=== PATIENT | male | born 1965 | race Hispanic/Latino ===

== ENCOUNTER 2016-12-01 19:26 | Emergency (ER) | payer MEDICARE ==
[2016-12-01 20:38] VITALS: BP 168/105
[2016-12-01 21:20] LABS: Basophils % (Auto) 0.8 % (0.0-1.8); Eosinophils % (Auto) 2.2 % (0.0-4.3); Hematocrit 46.3 % (35.5-45.6); Hemoglobin 15.6 gm/dl (11.8-15.2); Mean Corpuscular HGB Conc 34 % (32-34); Mean Corpuscular Hemoglobin 30 pg (28-32); Mean Corpuscular Volume 89 fl (84-94); Platelet Count 197 K/mm3 (140-440); Red Cell Distribution Width 13.5 % (13.2-15.2); White Blood Count 8.4 K/mm3 (4.5-11.0)
[2016-12-01 21:25] LABS: Urine Drugs of Abuse Note Disclamer
[2016-12-01 21:30] LABS: Anion Gap 19 mmol/L; Blood Urea Nitrogen 12 mg/dL (9-20); Calcium 9.2 mg/dL (8.4-10.2); Carbon Dioxide 26 mmol/L (22-30); Chloride 100.6 mmol/L (98-107); Glucose 133 mg/dL (75-100); Potassium 3.7 mmol/L (3.6-5.0); Sodium 142 mmol/L (137-145)
[2016-12-01 21:44] LABS: Bilirubin,Urine NEG (Negative); Blood,Urine NEG (Negative); Ketones,Urine TR mg/dL (Negative); Leukocyte Esterase,Urine NEG (Negative); Mucus,Urine FEW /HPF; Nitrite,Urine NEG (Negative); Protein,Urine <15 mg/dL mg/dL (Negative); Urobilinogen,Urine < 2.0 mg/dL (<2.0); WBC,Urine < 1.0 /HPF (0.0-6.0)
--- NOTE | 2016-12-01 22:24 | Emergency Department Report ---
ED Psych HPI - General Chief Complaint: Psych Stated Complaint: MENTAL HEALTH EVAL Time Seen by Provider: 12/01/16 22:17 Source: patient Mode of arrival: Ambulatory Limitations: No Limitations - History of Present Illness Initial Comments: 51-year-old male presents to the emergency department for medical clearance. Patient was seen at [facility] and has been accepted for admission by Dr. Sharma for opiate addiction. At this time, the patient has no complaints. He denies suicidal or homicidal thoughts. He also denies auditory or visual hallucinations. There are no other complaints -: Gradual Associated Psychiatric Symptoms: none History of same: No Improves With: none Worsens With: none Context: recent drug abuse Associated Symptoms: denies other symptoms Treatments Prior to Arrival: none - Related Data Allergies Allergy/AdvReac Type Severity Reaction Status Date / Time No Known Allergies Allergy Unverified 12/01/16 20:56 ED Review of Systems ROS: Stated complaint: MENTAL HEALTH EVAL Other details as noted in HPI Comment: All other systems reviewed and negative Psychiatric: as per HPI, other (drug abuse) ED Past Medical Hx - Past Medical History Previous Medical History?: Yes Hx Hypertension: Yes Hx Diabetes: Yes Additional medical history: Hyperlipidemia - Surgical History Past Surgical History?: Yes Additional Surgical History: HERNIA SX 2008 - Family History Family history: no significant - Social History Smoking Status: Current Every Day Smoker Substance Use Type: Prescribed ED Physical Exam - General Limitations: No Limitations General appearance: alert, in no apparent distress - Head Head exam: Present: atraumatic, normocephalic - Eye Eye exam: Present: normal appearance, PERRL, EOMI - ENT ENT exam: Present: normal exam, normal orophraynx, mucous membranes moist - Neck Neck exam: Present: normal inspection, full ROM. Absent: tenderness - Respiratory Respiratory exam: Present: normal lung sounds bilaterally. Absent: respiratory distress - Cardiovascular Cardiovascular Exam: Present: regular rate, normal rhythm, normal heart sounds - GI/Abdominal GI/Abdominal exam: Present: soft, normal bowel sounds. Absent: distended, tenderness - Extremities Exam Extremities exam: Present: normal inspection, full ROM. Absent: tenderness - Back Exam Back exam: Present: normal inspection, full ROM. Absent: tenderness - Neurological Exam Neurological exam: Present: alert, oriented X3. Absent: motor sensory deficit - Skin Skin exam: Present: warm, dry, intact ED Course Vital Signs 12/01/16 12/01/16 20:37 20:47 Temperature 98.8 F 98.8 F Pulse Rate 72 72 Respiratory 18 18 Rate Blood Pressure 168/105 Blood Pressure 168/105 [Right] O2 Sat by Pulse 97 97 Oximetry ED Medical Decision Making - Lab Data Result diagrams: 12/01/16 20:58 12/01/16 20:58 - Medical Decision Making Laboratory results reviewed and discussed with the patient. Patient has been medically cleared. Patient will be discharged from the emergency department to go back to take her hospital for inpatient treatment. - Differential Diagnosis drug abuse Critical care attestation.: If time is entered above; I have spent that time in minutes in the direct care of this critically ill patient, excluding procedure time. ED Disposition Clinical Impression: Drug abuse, Medical clearance for psychiatric admission Disposition: DC/TX-65 PSY HOSP/PSY UNIT Is pt being admited?: No Condition: Stable Instructions: Medical Clearance for Substance Abuse Treatment (ED) Referrals: Hospital, [place] [Other] - [facility] (Go there now to be admitted.) Time of Disposition: 22:27
== END 2016-12-01 22:32 ==
LOC: ED 19:26 → EEVIPCON 19:26 → ED 22:32
DX: Z00.8 Encounter for other general examination (principal); F19.10 Other psychoactive substance abuse, uncomplicated; I10 Essential (primary) hypertension; E11.9 Type 2 diabetes mellitus without complications; E78.00 Pure hypercholesterolemia, unspecified
CPT/HCPCS: 36415; 80048; 80307; 81001; 85025; 99283; G0480; 80320

== ENCOUNTER 2017-09-23 09:14 | Outpatient (CLI) | payer MEDICARE ==
[2017-09-23 10:23] LABS: Blood Urea Nitrogen 12 mg/dL (9-20)
--- NOTE | 2017-09-23 16:39 | Cat Scan Report ---
FINAL REPORT EXAM: CT ABDOMEN PELVIS W CON HISTORY: ABDOMINAL PAIN TECHNIQUE: CT examination of the ABDOMEN after IV contrast CT examination of the PELVIS after IV contrast PRIORS: None. FINDINGS: Nonspecific diffusely decreased density of liver parenchyma may reflect fatty infiltration. No visualized focal liver lesion. There is slight focal fatty sparing adjacent the gallbladder fossa. Normal-appearing gallbladder, adrenals, pancreas, and spleen. Intact normal caliber abdominal aorta with slight calcified atherosclerotic plaque. Normal caliber IVC. Normal-appearing kidneys and ureters. Surgical coils in the anterior abdominal wall may reflect prior umbilical hernia repair. Small fat containing left inguinal hernia. No retroperitoneal adenopathy. No mesenteric mass. Normal-appearing stomach and duodenum. No small bowel distention in the abdomen and pelvis. No pelvic free fluid. Normal-appearing urinary bladder, prostate, seminal vesicles, and rectum. No definite sigmoid colon abnormality. No gross ascites, free air, or colonic distention. Normal-appearing cecum, terminal ileum, and appendix. IMPRESSION: Hepatic steatosis Small fat containing left inguinal hernia
== END 2017-09-23 09:15 | disposition home or self-care (01) ==
LOC: CT 09:14
PROVIDERS: ATTEND Internal Medicine Gastroenterology
DX: K40.90 Unilateral inguinal hernia, without obstruction or gangrene, not specified as recurrent (principal); K76.0 Fatty (change of) liver, not elsewhere classified; I70.0 Atherosclerosis of aorta
CPT/HCPCS: 36415; 74177; 82565; 84520; Q9967

== ENCOUNTER 2017-10-02 10:12 | Inpatient (IN) | payer MEDICARE ==
[2017-10-02] MEDS ORDERED: ZOFRAN ODT PO PRN (11:29)
[2017-10-02] MEDS ORDERED: ATIVAN IV ONE (11:29)
[2017-10-02] MEDS ORDERED: SENOKOT PO PRN (11:29)
[2017-10-02] MEDS ORDERED: DULCOLAX PR PRN (11:29)
[2017-10-02] MEDS ORDERED: HumaLOG SUB-Q ONE (11:51)
[2017-10-02] MEDS: HumaLOG SUB-Q SCH ×3 (11:56→23:05)
[2017-10-02] MEDS ORDERED: FOLVITE IV SCH (12:00)
[2017-10-02] MEDS ORDERED: INFUVITE IV SCH (12:00)
[2017-10-02] MEDS ORDERED: NACL 0.9% IV SCH (12:00)
[2017-10-02] MEDS ORDERED: ATIVAN PO SCH (12:00)
[2017-10-02] MEDS ORDERED: VITAMIN B1 IV SCH (12:00)
[2017-10-02] MEDS ORDERED: HABITROL TD PRN (15:57)
--- NOTE | 2017-10-02 16:12 | History and Physical Report ---
History of Present Illness Date of examination: 10/02/17 Date of admission: 10/02/17 10:45 Chief complaint: Opiate withdraw History of present illness: Mr. Ugarte is 51 yo man with a history of IDDM, hypertension, dyslipidemia, depression, tobacco dependency, alcohol abuse and opiate addiction who presents as a Direct admission from [facility] for opiate and alcohol withdrawal. He is mainly here for opiate withdrawal, percocet and doesn't consider alcohol to be an issue; although he drinks 1/2 pint of Old Pak Whiskey almost daily, his last drink was Thursday at 4pm. He has been to opiate medical stabilization unit in the past. He was on suboxone, and was taking off it, he was buying Suboxone illegally. Currently, he denies any complaints. PMH: as hpi PSH: Ventral hernia repair SH: 1/2 ppd tob, 1/2 pint Whiskey every other day, denies cocaine FH: Father has htn, no dm, no early heart attacks ROS: Constitutional: denies: fever ENT: denies: throat or neck pain Respiratory: denies: cough, shortness of breath Cardiovascular: denies: chest pain Endocrine: denies unexplained weight loss or gain Gastrointestinal: denies: abdominal pain, nausea Genitourinary: denies: dysuria Rectal: denies no incontinence, no bleeding, no itching, no discharge Musculoskeletal: denies swelling, myaglia, muscle weakness Skin: denies: rash Neurological: denies: headache Hematological/Lymphatic: denies: easy bleeding or easy bruising Allergic/Immunologic: no urticaria, no allergic rhinitis, no anaphylaxis Psych: denies sadness or hopelessness, SI/HI Medications and Allergies Allergies Allergy/AdvReac Type Severity Reaction Status Date / Time No Known Allergies Allergy Unverified 12/01/16 20:56 Home Medications Medication Instructions Recorded Confirmed Last Taken Type Albuterol Sulfate [Ventolin HFA] 2 puff IH Q4H PRN 10/02/17 10/02/17 Unknown History Detemir (Nf) [Levemir (Nf)] 20 units SUB-Q HS 10/02/17 10/02/17 Unknown History Dicyclomine [Bentyl] 20 mg PO TID 10/02/17 10/02/17 Unknown History Gabapentin [Neurontin] 400 mg PO HS 10/02/17 10/02/17 Unknown History Insulin Aspart [NovoLOG Flexpen] See Protocol SQ ACHS 10/02/17 10/02/17 Unknown History Lisinopril/Hydrochlorothiazide 1 each PO HS 10/02/17 10/02/17 Unknown History [Zestoretic 10-12.5 mg Tablet] Sertraline HCl [Zoloft] 50 mg PO DAILY 10/02/17 10/02/17 Unknown History Active Meds: Active Medications Bisacodyl (Dulcolax) 10 mg AR QDAY PRN PRN Reason: Bowel Movement Folic Acid (Folvite) 1 mg PO QDAY [facility] Thiamine HCl 100 mg/Multivitamins/Minerals 10 ml/Folic Acid 1 mg/ Sodium Chloride 1,011.2 mls @ 150 mls/hr IV QDAY [facility] Stop: 10/02/17 18:45 Last Admin: 10/02/17 12:08 Dose: 150 mls/hr Sodium Chloride (Nacl 0.9% 1000 Ml) 1,000 mls @ 100 mls/hr IV DIRECT CHRISTA Insulin Human Lispro (Humalog) 0 unit SUB-Q [facility]; Protocol Last Admin: 10/02/17 11:56 Dose: 4 unit Lorazepam (Ativan) 1 mg PO Q6HR [facility] Stop: 10/04/17 00:01 Lorazepam (Ativan) 1 mg PO Q8HR [facility] Stop: 10/04/17 22:01 Lorazepam (Ativan) 1 mg PO Q4H [facility] Stop: 10/03/17 08:01 Multivitamins (Theragran Tab) 1 each PO QDAY [facility] Nicotine (Habitrol) 21 mg TD QDAY PRN PRN Reason: Smoking Cessation Ondansetron HCl (Zofran) 4 mg IV Q6H PRN PRN Reason: Moderat/Severe Nausea/Vomiting Ondansetron HCl (Zofran Odt) 4 mg PO Q6H PRN PRN Reason: Mild / Nausea And Vomiting Senna (Senokot) 17.2 mg PO QHS PRN PRN Reason: Constipation Thiamine HCl (Vitamin B-1) 100 mg PO QDAY [facility] Trazodone HCl (Desyrel) 50 mg PO QHS [facility] Exam - Physical Exam Narrative exam: GEN: WDWN, NAD, Awake, Alert, Orientated x 3 HEENT: NCAT, EOMI, PERRL, OP Clear NECK: supple, no adenopathy, no thyromegaly, no JVD CVS/HEART: RRR, normal S1S2, pulses present bilaterally CHEST/LUNGS: CTA B, Symmetrical chest expansion, good air entry bilaterally GI/Abdomen: soft, NTND, good bowel sounds, no guarding or rebound /Bladder: no suprapubic tenderness, no CVA or paraspinal tenderness EXT/Skin: no c/c/e, no obvious rash MSK: FROM x 4 Neuro: CN 2-12 grossly intact, no new focal deficits Psych: calm - Constitutional Vitals: Temp Pulse Resp BP Pulse Ox 97.9 F 66 18 172/75 97 10/02/17 11:03 10/02/17 11:03 10/02/17 11:15 10/02/17 11:03 10/02/17 11:15 Results - Labs Labs: Abnormal lab results 10/02/17 Range/Units 11:30 POC Glucose 271 H (70-105) Assessment and Plan Mr. Ugarte is 51 yo man with a history of IDDM, hypertension, dyslipidemia, depression, tobacco dependency, alcohol abuse and opiate addiction who presents as a Direct admission from [facility] for opiate and alcohol withdrawal. He is mainly here for opiate withdrawal, percocet and doesn't consider alcohol to be an issue; although he drinks 1/2 pint of Old Pak Whiskey almost daily, his last drink was Thursday at 4pm. He has been to opiate medical stabilization unit in the past. He was on suboxone, and was taking off it, he was buying Suboxone illegally. Currently, he denies any complaints. PCP Dr. Jr Holm -Opiate Withdrawal, CINA 17: medical stabilization protocol used, counseling done -Etoh Withdrawal, CIWA 25: medical stabilization protocol used, counseling done -Tobacco dependency: certified addiction counselor done, offered nicotine -IDDM uncontrolled with hyperglycemia: add ssi insulin, he takes 20 units of levemir daily and novolog ssi at home -UDS positive for amphetamines: Leaf Stripper -Hypertension: continue antihypertensives
[2017-10-02] MEDS ORDERED: PROAIR IH PRN (16:21)
[2017-10-02] MEDS ORDERED: APRESOLINE IV PRN (16:30)
[2017-10-02] MEDS: ATIVAN PO SCH ×2 (16:39→20:43)
[2017-10-02] MEDS ORDERED: PROVENTIL IH PRN (16:43)
[2017-10-02] MEDS: NORVASC PO SCH (16:44)
[2017-10-02] MEDS: ZESTRIL PO SCH (16:45)
[2017-10-02] MEDS: NACL 0.9% 1000 ML 1,000 ML IV SCH (18:47)
[2017-10-02] MEDS: NEURONTIN PO SCH (21:04)
[2017-10-02] MEDS: DESYREL PO SCH (21:05)
[2017-10-02] MEDS: ZOFRAN IV PRN (21:05)
[2017-10-02] MEDS ORDERED: ZESTRIL PO SCH (22:00)
[2017-10-02] MEDS ORDERED: DETEMIR SUB-Q SCH (22:00)
[2017-10-02] MEDS ORDERED: NON-FORMULARY (Lisinopril/Hydrochlorothiazide [Zestoretic 10-12.5 Mg Tablet] 1 EACH) PO SCH (22:00)
[2017-10-02] MEDS ORDERED: HCTZ PO SCH (22:00)
[2017-10-02] MEDS: LANTUS SUB-Q SCH (23:03)
[2017-10-03] MEDS: ATIVAN PO SCH ×8 (00:12→23:57)
[2017-10-03 00:13] LABS: Bilirubin,Urine NEG (Negative); Blood,Urine NEG (Negative); Color,Urine Yellow (Yellow); Protein,Urine <15 mg/dL mg/dL (Negative); Urobilinogen,Urine < 2.0 mg/dL (<2.0); WBC,Urine < 1.0 /HPF (0.0-6.0)
[2017-10-03 00:21] LABS: Amphetamine Screen,Urine PRESUMPTIVE NEGATIVE; Benzodiazepines Screen,Urine PRESUMPTIVE NEGATIVE; Cannabinoid Screen,Urine PRESUMPTIVE NEGATIVE; Cocaine Screen,Urine PRESUMPTIVE NEGATIVE; Methadone Screen,Urine PRESUMPTIVE NEGATIVE; Opiate Screen,Urine PRESUMPTIVE NEGATIVE
[2017-10-03] MEDS: HumaLOG SUB-Q SCH ×4 (08:25→21:19)
[2017-10-03] MEDS: NACL 0.9% 1000 ML 1,000 ML IV SCH ×2 (08:28→23:55)
[2017-10-03] MEDS: THERAGRAN Tab PO SCH (10:54)
[2017-10-03] MEDS: FOLVITE PO SCH (10:54)
[2017-10-03] MEDS: ZESTRIL PO SCH (10:54)
[2017-10-03] MEDS: VITAMIN B-1 PO SCH (10:54)
[2017-10-03] MEDS: ZOLOFT PO SCH (10:54)
[2017-10-03] MEDS: NORVASC PO SCH (10:55)
--- NOTE | 2017-10-03 11:09 | Progress Note ---
Assessment and Plan Assessment and plan: Mr. Ugarte is 51 yo man with a history of IDDM, hypertension, dyslipidemia, depression, tobacco dependency, alcohol abuse and opiate addiction who presents as a Direct admission from [facility] for opiate and alcohol withdrawal. He is mainly here for opiate withdrawal, percocet and doesn't consider alcohol to be an issue; although he drinks 1/2 pint of Old Pak Whiskey almost daily, his last drink was Thursday at 4pm. He has been to opiate medical stabilization unit in the past. He was on suboxone, and was taking off it, he was buying Suboxone illegally. Currently, he denies any complaints. PCP Dr. Jr Holm -Opiate Withdrawal, CINA 17 on admission: medical stabilization protocol used, counseling done -Etoh Withdrawal, CIWA 25 on admission: medical stabilization protocol used, counseling done -Tobacco dependency: staff counselor done, offered nicotine -IDDM uncontrolled with hyperglycemia: add ssi insulin, he takes 20 units of levemir daily and novolog ssi at home -Hypertension: continue antihypertensives History Interval history: Patient was seen and examined. Follow-up on current diagnosis. Overnight uneventful. Patient denies any chest pain, shortness breath, nausea/vomiting or severe headaches. Imaging, nursing note, chart, labs and old chart reviewed. Discussed with patient. Hospitalist Physical - Physical exam Narrative exam: GEN: WDWN, NAD, Awake, Alert, Orientated x 3 HEENT: NCAT, EOMI, PERRL, OP Clear NECK: supple, no adenopathy, no thyromegaly, no JVD CVS/HEART: RRR, normal S1S2, pulses present bilaterally CHEST/LUNGS: CTA B, Symmetrical chest expansion, good air entry bilaterally GI/Abdomen: soft, NTND, good bowel sounds, no guarding or rebound /Bladder: no suprapubic tenderness, no CVA or paraspinal tenderness EXT/Skin: no c/c/e, no obvious rash MSK: FROM x 4 Neuro: CN 2-12 grossly intact, no new focal deficits Psych: calm - Constitutional Vitals: Temp Pulse Resp BP Pulse Ox 98.6 F 61 20 131/87 95 10/03/17 08:27 10/03/17 10:55 10/03/17 08:27 10/03/17 10:55 10/03/17 08:27 Results - Labs Labs: Laboratory Last Values POC Glucose 251 (70-105) H 10/02/17 22:11 Urine Color Yellow (Yellow) 10/02/17 Unknown Urine Turbidity Clear (Clear) 10/02/17 Unknown Urine pH 6.0 (5.0-7.0) 10/02/17 Unknown Ur Specific [place] 1.012 (1.003-1.030) 10/02/17 Unknown Urine Protein <15 mg/dl mg/dL (Negative) 10/02/17 Unknown Urine Glucose (UA) >=500 mg/dL (Negative) 10/02/17 Unknown Urine Ketones Neg mg/dL (Negative) 10/02/17 Unknown Urine Blood Neg (Negative) 10/02/17 Unknown Urine Nitrite Neg (Negative) 10/02/17 Unknown Urine Bilirubin Neg (Negative) 10/02/17 Unknown Urine Urobilinogen < 2.0 mg/dL (<2.0) 10/02/17 Unknown Ur Leukocyte Esterase Neg (Negative) 10/02/17 Unknown Urine WBC (Auto) < 1.0 /HPF (0.0-6.0) 10/02/17 Unknown Urine RBC (Auto) 2.0 /HPF (0.0-6.0) 10/02/17 Unknown Urine Opiates Screen Presumptive negative 10/02/17 Unknown Urine Methadone Screen Presumptive negative 10/02/17 Unknown Ur Barbiturates Screen Presumptive negative 10/02/17 Unknown Ur Phencyclidine Scrn Presumptive negative 10/02/17 Unknown Ur Amphetamines Screen Presumptive negative 10/02/17 Unknown U Benzodiazepines Scrn Presumptive negative 10/02/17 Unknown Urine Cocaine Screen Presumptive negative 10/02/17 Unknown U Marijuana (THC) Screen Presumptive negative 10/02/17 Unknown Drugs of Abuse Note Disclamer 10/02/17 Unknown
[2017-10-03] MEDS ORDERED: ATIVAN PO SCH (14:00)
[2017-10-03] MEDS: ZOFRAN IV PRN (21:04)
[2017-10-03] MEDS: LANTUS SUB-Q SCH (21:11)
[2017-10-03] MEDS: DESYREL PO SCH (21:11)
[2017-10-03] MEDS: NEURONTIN PO SCH (21:11)
[2017-10-04] MEDS: ZOFRAN IV PRN ×2 (05:19→19:40)
[2017-10-04] MEDS: ATIVAN PO SCH ×4 (05:20→22:10)
[2017-10-04] MEDS: HumaLOG SUB-Q SCH ×4 (08:52→22:22)
[2017-10-04] MEDS: ZESTRIL PO SCH (09:56)
[2017-10-04] MEDS: THERAGRAN Tab PO SCH (09:58)
[2017-10-04] MEDS: FOLVITE PO SCH (09:58)
[2017-10-04] MEDS: NORVASC PO SCH (09:58)
[2017-10-04] MEDS: VITAMIN B-1 PO SCH (09:58)
[2017-10-04] MEDS: ZOLOFT PO SCH (09:59)
[2017-10-04] MEDS: NACL 0.9% 1000 ML 1,000 ML IV SCH ×2 (11:24→22:22)
--- NOTE | 2017-10-04 14:32 | Progress Note ---
Assessment and Plan Assessment and plan: Mr. Ugarte is 51 yo man with a history of IDDM, hypertension, dyslipidemia, depression, tobacco dependency, alcohol abuse and opiate addiction who presents as a Direct admission from [facility] for opiate and alcohol withdrawal. He is mainly here for opiate withdrawal, percocet and doesn't consider alcohol to be an issue; although he drinks 1/2 pint of Old Pak Whiskey almost daily, his last drink was Thursday at 4pm. He has been to opiate medical stabilization unit in the past. He was on suboxone, and was taking off it, he was buying Suboxone illegally. Currently, he denies any complaints. PCP Dr. Jr Holm -Opiate Withdrawal, CINA 17 on admission: medical stabilization protocol used, counseling done -Etoh Withdrawal, CIEMELINA 25 on admission: medical stabilization protocol used, counseling done -Tobacco dependency: school adjustment counselor done, offered nicotine -IDDM uncontrolled with hyperglycemia: add ssi insulin, he takes 20 units of levemir daily and novolog ssi at home -Hypertension: continue antihypertensives History Interval history: Patient was seen and examined. Follow-up on current diagnosis. Overnight uneventful. Patient denies any chest pain, shortness breath, nausea/vomiting or severe headaches. Imaging, nursing note, chart, labs and old chart reviewed. Discussed with patient. Hospitalist Physical - Physical exam Narrative exam: GEN: WDWN, NAD, Awake, Alert, Orientated x 3 HEENT: NCAT, EOMI, PERRL, OP Clear NECK: supple, no adenopathy, no thyromegaly, no JVD CVS/HEART: RRR, normal S1S2, pulses present bilaterally CHEST/LUNGS: CTA B, Symmetrical chest expansion, good air entry bilaterally GI/Abdomen: soft, NTND, good bowel sounds, no guarding or rebound /Bladder: no suprapubic tenderness, no CVA or paraspinal tenderness EXT/Skin: no c/c/e, no obvious rash MSK: FROM x 4 Neuro: CN 2-12 grossly intact, no new focal deficits Psych: calm - Constitutional Vitals: Temp Pulse Resp BP Pulse Ox 98.2 F 60 20 154/88 95 10/04/17 12:00 10/04/17 12:00 10/04/17 12:00 10/04/17 12:00 10/04/17 12:00 Results - Labs Labs: Laboratory Last Values POC Glucose 189 (70-105) H 10/04/17 11:31 Urine Color Yellow (Yellow) 10/02/17 Unknown Urine Turbidity Clear (Clear) 10/02/17 Unknown Urine pH 6.0 (5.0-7.0) 10/02/17 Unknown Ur Specific [place] 1.012 (1.003-1.030) 10/02/17 Unknown Urine Protein <15 mg/dl mg/dL (Negative) 10/02/17 Unknown Urine Glucose (UA) >=500 mg/dL (Negative) 10/02/17 Unknown Urine Ketones Neg mg/dL (Negative) 10/02/17 Unknown Urine Blood Neg (Negative) 10/02/17 Unknown Urine Nitrite Neg (Negative) 10/02/17 Unknown Urine Bilirubin Neg (Negative) 10/02/17 Unknown Urine Urobilinogen < 2.0 mg/dL (<2.0) 10/02/17 Unknown Ur Leukocyte Esterase Neg (Negative) 10/02/17 Unknown Urine WBC (Auto) < 1.0 /HPF (0.0-6.0) 10/02/17 Unknown Urine RBC (Auto) 2.0 /HPF (0.0-6.0) 10/02/17 Unknown Urine Opiates Screen Presumptive negative 10/02/17 Unknown Urine Methadone Screen Presumptive negative 10/02/17 Unknown Ur Barbiturates Screen Presumptive negative 10/02/17 Unknown Ur Phencyclidine Scrn Presumptive negative 10/02/17 Unknown Ur Amphetamines Screen Presumptive negative 10/02/17 Unknown U Benzodiazepines Scrn Presumptive negative 10/02/17 Unknown Urine Cocaine Screen Presumptive negative 10/02/17 Unknown U Marijuana (THC) Screen Presumptive negative 10/02/17 Unknown Drugs of Abuse Note Disclamer 10/02/17 Unknown
[2017-10-04] MEDS: DESYREL PO SCH (21:56)
[2017-10-04] MEDS: NEURONTIN PO SCH (21:56)
[2017-10-04] MEDS: LANTUS SUB-Q SCH (22:08)
[2017-10-05] MEDS: ATIVAN PO SCH (05:17)
[2017-10-05] MEDS: ZOFRAN IV PRN (05:36)
[2017-10-05] MEDS: HumaLOG SUB-Q SCH ×4 (08:20→23:37)
[2017-10-05] MEDS: TYLENOL PO PRN ×3 (08:25→19:55)
[2017-10-05] MEDS: ZESTRIL PO SCH (09:18)
[2017-10-05] MEDS: NORVASC PO SCH (09:18)
[2017-10-05] MEDS: THERAGRAN Tab PO SCH (09:19)
[2017-10-05] MEDS: VITAMIN B-1 PO SCH (09:19)
[2017-10-05] MEDS: ZOLOFT PO SCH (09:19)
[2017-10-05] MEDS: FOLVITE PO SCH (09:22)
--- NOTE | 2017-10-05 12:02 | Progress Note ---
Assessment and Plan Assessment and plan: Mr. Ugarte is 51 yo man with a history of IDDM, hypertension, dyslipidemia, depression, tobacco dependency, alcohol abuse and opiate addiction who presents as a Direct admission from [facility] for opiate and alcohol withdrawal. He is mainly here for opiate withdrawal, percocet and doesn't consider alcohol to be an issue; although he drinks 1/2 pint of Old Pak Whiskey almost daily, his last drink was Thursday at 4pm. He has been to opiate medical stabilization unit in the past. He was on suboxone, and was taking off it, he was buying Suboxone illegally. Currently, he denies any complaints. PCP Dr. Jr Holm -Opiate Withdrawal, CINA 17 on admission: medical stabilization protocol used, counseling done -Etoh Withdrawal, CIWA 25 on admission: medical stabilization protocol used, counseling done -Tobacco dependency: [employer] travel counselor done, offered nicotine -IDDM uncontrolled with hyperglycemia: add ssi insulin, he takes 20 units of levemir daily and novolog ssi at home -Hypertension: continue antihypertensives d/c once cleared by [facility] medical team. History Interval history: Patient was seen and examined. Follow-up on current diagnosis. Overnight uneventful. Patient denies any chest pain, shortness breath, nausea/vomiting or severe headaches. Imaging, nursing note, chart, labs and old chart reviewed. Discussed with patient. Hospitalist Physical - Physical exam Narrative exam: GEN: WDWN, NAD, Awake, Alert, Orientated x 3 HEENT: NCAT, EOMI, PERRL, OP Clear NECK: supple, no adenopathy, no thyromegaly, no JVD CVS/HEART: RRR, normal S1S2, pulses present bilaterally CHEST/LUNGS: CTA B, Symmetrical chest expansion, good air entry bilaterally GI/Abdomen: soft, NTND, good bowel sounds, no guarding or rebound /Bladder: no suprapubic tenderness, no CVA or paraspinal tenderness EXT/Skin: no c/c/e, no obvious rash MSK: FROM x 4 Neuro: CN 2-12 grossly intact, no new focal deficits Psych: calm - Constitutional Vitals: Temp Pulse Resp BP Pulse Ox 97.7 F 71 20 168/104 96 10/05/17 08:10 10/05/17 09:18 10/05/17 08:25 10/05/17 09:18 10/05/17 08:52 Results - Labs Labs: Laboratory Last Values POC Glucose 137 (70-105) H 10/05/17 08:15 Urine Color Yellow (Yellow) 10/02/17 Unknown Urine Turbidity Clear (Clear) 10/02/17 Unknown Urine pH 6.0 (5.0-7.0) 10/02/17 Unknown Ur Specific [place] 1.012 (1.003-1.030) 10/02/17 Unknown Urine Protein <15 mg/dl mg/dL (Negative) 10/02/17 Unknown Urine Glucose (UA) >=500 mg/dL (Negative) 10/02/17 Unknown Urine Ketones Neg mg/dL (Negative) 10/02/17 Unknown Urine Blood Neg (Negative) 10/02/17 Unknown Urine Nitrite Neg (Negative) 10/02/17 Unknown Urine Bilirubin Neg (Negative) 10/02/17 Unknown Urine Urobilinogen < 2.0 mg/dL (<2.0) 10/02/17 Unknown Ur Leukocyte Esterase Neg (Negative) 10/02/17 Unknown Urine WBC (Auto) < 1.0 /HPF (0.0-6.0) 10/02/17 Unknown Urine RBC (Auto) 2.0 /HPF (0.0-6.0) 10/02/17 Unknown Urine Opiates Screen Presumptive negative 10/02/17 Unknown Urine Methadone Screen Presumptive negative 10/02/17 Unknown Ur Barbiturates Screen Presumptive negative 10/02/17 Unknown Ur Phencyclidine Scrn Presumptive negative 10/02/17 Unknown Ur Amphetamines Screen Presumptive negative 10/02/17 Unknown U Benzodiazepines Scrn Presumptive negative 10/02/17 Unknown Urine Cocaine Screen Presumptive negative 10/02/17 Unknown U Marijuana (THC) Screen Presumptive negative 10/02/17 Unknown Drugs of Abuse Note Disclamer 10/02/17 Unknown
--- NOTE | 2017-10-05 12:05 | Discharge Summary ---
Providers - Providers Date of Admission: 10/02/17 10:45 Date of discharge: 10/05/17 Attending physician: KOTA DRUMMOND Primary care physician: EMILY HOLM Hospitalization Condition: Stable Hospital course: Mr. Ugarte is 51 yo man with a history of IDDM, hypertension, dyslipidemia, depression, tobacco dependency, alcohol abuse and opiate addiction who presents as a Direct admission from [facility] for opiate and alcohol withdrawal. He is mainly here for opiate withdrawal, percocet and doesn't consider alcohol to be an issue; although he drinks 1/2 pint of Old Pak Whiskey almost daily, his last drink was Thursday at 4pm. He has been to opiate medical stabilization unit in the past. He was on suboxone, and was taking off it, he was buying Suboxone illegally. Currently, he denies any complaints. PCP Dr. Jr Holm -Opiate Withdrawal, CINA 17 on admission: medical stabilization protocol used, counseling done -Etoh Withdrawal, CIWA 25 on admission: medical stabilization protocol used, counseling done -Tobacco dependency: res counselor done, offered nicotine -IDDM uncontrolled with hyperglycemia: add ssi insulin, he takes 20 units of levemir daily and novolog ssi at home -Hypertension: continue antihypertensives d/c once cleared by [facility] medical team. Disposition: DC-01 TO HOME OR SELFCARE Time spent for discharge: 35 minutes Core Measure Documentation - Palliative Care Palliative Care/ Comfort Measures: Not Applicable - Core Measures Any of the following diagnoses?: none - VTE Discharge Requirements Deep Vein Thrombosis/Pulmonary Embolism Present on Admission: No Has pt received <5 days of overlap therapy or INR<2.0: No Anticoagulant overlap therapy prescribed at discharge: No Contraindication No Overlap Therapy order at DC: Not Indicated Exam - Physical Exam Narrative exam: GEN: WDWN, NAD, Awake, Alert, Orientated x 3 HEENT: NCAT, EOMI, PERRL, OP Clear NECK: supple, no adenopathy, no thyromegaly, no JVD CVS/HEART: RRR, normal S1S2, pulses present bilaterally CHEST/LUNGS: CTA B, Symmetrical chest expansion, good air entry bilaterally GI/Abdomen: soft, NTND, good bowel sounds, no guarding or rebound /Bladder: no suprapubic tenderness, no CVA or paraspinal tenderness EXT/Skin: no c/c/e, no obvious rash MSK: FROM x 4 Neuro: CN 2-12 grossly intact, no new focal deficits Psych: calm - Constitutional Vitals: Temp Pulse Resp BP Pulse Ox 97.7 F 71 20 168/104 96 10/05/17 08:10 10/05/17 09:18 10/05/17 08:25 10/05/17 09:18 10/05/17 08:52 Plan Activity: other (no strenous activity) Diet: low salt, diabetic Follow up with: EMILY HOLM MD [Primary Care Provider] - 7 Days
[2017-10-05] MEDS ORDERED: HALDOL IV PRN (13:51)
[2017-10-05] MEDS ORDERED: ATIVAN IV PRN (13:51)
[2017-10-05] MEDS ORDERED: CATAPRES PO PRN (13:52)
[2017-10-05] MEDS ORDERED: REGLAN IV PRN (13:52)
[2017-10-05] MEDS: ATIVAN IV PRN ×2 (14:13→19:54)
[2017-10-05 15:07] LABS: Hematocrit 44.3 % (35.5-45.6); Hemoglobin 15.6 gm/dl (11.8-15.2); Mean Corpuscular HGB Conc 35 % (32-34); Mean Corpuscular Hemoglobin 31 pg (28-32); Mean Corpuscular Volume 88 fl (84-94); Platelet Count 183 K/mm3 (140-440); Red Blood Count 5.01 M/mm3 (3.65-5.03); Red Cell Distribution Width 13.2 % (13.2-15.2)
[2017-10-05 15:36] LABS: Alanine Aminotransferase 47 units/L (7-56); Albumin 4.1 g/dL (3.9-5); BUN/Creatinine Ratio 13; Blood Urea Nitrogen 10 mg/dL (9-20); Calcium 9.2 mg/dL (8.4-10.2); Hemolysis Index 20
[2017-10-05 15:56] LABS: INR 0.84 (0.87-1.13)
[2017-10-05] MEDS: NEURONTIN PO SCH (23:22)
[2017-10-05] MEDS: DESYREL PO SCH (23:22)
[2017-10-05] MEDS: LANTUS SUB-Q SCH (23:37)
[2017-10-06] MEDS: ATIVAN IV PRN (00:15)
[2017-10-06] MEDS: HumaLOG SUB-Q SCH (08:30)
--- NOTE | 2017-10-06 09:20 | Discharge Summary ---
Providers - Providers Date of Admission: 10/02/17 10:45 Attending physician: EDIN HAMILTON MD Primary care physician: EMILY HOLM Hospitalization Reason for admission: Withdrawal Management Condition: Stable Hospital course: Mr. Ugarte is 51 yo man with a history of IDDM, hypertension, dyslipidemia, depression, tobacco dependency, alcohol abuse and opiate addiction who presents as a Direct admission from [facility] Team for opiate and alcohol withdrawal. He is mainly here for opiate withdrawal, percocet and doesn't consider alcohol to be an issue; although he drinks 1/2 pint of [employer] [place] Whiskey almost daily, his last drink was Thursday at 4pm. He has been to opiate medical stabilization unit in the past. He was on suboxone, and was taking off it, he was buying Suboxone illegally. Currently, he denies any complaints. PCP Dr. Jr Holm. Patient was started on the new [employer] protocol with re-evaluation each day showing gradual improvement from his withdrawal symptoms. He unfortunately left the unit for 2 hours last night despite multiple warnings against the same, leading to Discharge this morning. Nevertheless, his symptoms continue to improve. [facility] team provided post discharge instructions. -Opiate Withdrawal, CINA 17 on admission: medical stabilization protocol used, counseling done -Etoh Withdrawal, CIWA 25 on admission: medical stabilization protocol used, counseling done -Tobacco dependency: reimbursement counselor done, offered nicotine -IDDM uncontrolled with hyperglycemia: add ssi insulin, he takes 20 units of levemir daily and novolog ssi at home -Hypertension: continue antihypertensives Disposition: DC-01 TO HOME OR SELFCARE Time spent for discharge: 35 mins Core Measure Documentation - Palliative Care Palliative Care/ Comfort Measures: Not Applicable - Core Measures Any of the following diagnoses?: none - VTE Discharge Requirements Deep Vein Thrombosis/Pulmonary Embolism Present on Admission: No Exam - Physical Exam Narrative exam: GEN: WDWN, NAD, Awake, Alert, Orientated x 3 HEENT: NCAT, EOMI, PERRL, OP Clear NECK: supple, no adenopathy, no thyromegaly, no JVD CVS/HEART: RRR, normal S1S2, pulses present bilaterally CHEST/LUNGS: CTA B, Symmetrical chest expansion, good air entry bilaterally GI/Abdomen: soft, NTND, good bowel sounds, no guarding or rebound /Bladder: no suprapubic tenderness, no CVA or paraspinal tenderness EXT/Skin: no c/c/e, no obvious rash MSK: FROM x 4 Neuro: CN 2-12 grossly intact, no new focal deficits Psych: calm - Constitutional Vitals: Temp Pulse Resp BP Pulse Ox 98.3 F 104 H 20 132/88 93 10/06/17 00:51 10/06/17 00:51 10/05/17 16:07 10/05/17 16:07 10/06/17 01:43 Plan Activity: advance as tolerated, fall precautions Diet: low fat Special Instructions: record daily weights, record daily BP diary Follow up with: EMILY HOLM MD [Primary Care Provider] - 7 Days
[2017-10-06 10:14] VITALS: BP 147/88
[2017-10-06] MEDS: THERAGRAN Tab PO SCH (10:15)
[2017-10-06] MEDS: ZESTRIL PO SCH (10:15)
[2017-10-06] MEDS: VITAMIN B-1 PO SCH (10:15)
[2017-10-06] MEDS: FOLVITE PO SCH (10:15)
[2017-10-06] MEDS: ZOLOFT PO SCH (10:15)
[2017-10-06] MEDS: NORVASC PO SCH (10:15)
== END 2017-10-06 12:50 | disposition home or self-care (01) | DRG 897 ==
LOC: 2B-ACE 10:12 → UNDOADMIN 10:12 → MSU 10:45
PROVIDERS: ADMIT Internal Medicine; ATTEND Internal Medicine
DX: F11.23 Opioid dependence with withdrawal (principal); F10.239 Alcohol dependence with withdrawal, unspecified; E11.9 Type 2 diabetes mellitus without complications; I10 Essential (primary) hypertension; E78.5 Hyperlipidemia, unspecified; F32.9 Major depressive disorder, single episode, unspecified; F17.200 Nicotine dependence, unspecified, uncomplicated; Z79.4 Long term (current) use of insulin; Z71.6 Tobacco abuse counseling; Z71.41 Alcohol abuse counseling and surveillance of alcoholic
CPT/HCPCS: 36415; 80053; 80307; 80320; 81001; 82150; 82962; 83690; 85027; 85610; 93005; 93010; 99406; G0480; J0360; J1815; J2060; J2405; J2765; J3411; J7030; Q0162